=== PATIENT | male | born 1995 | race African-American/Black ===

== ENCOUNTER 2019-04-24 11:23 | Emergency (ER) | payer SELFPAY ==
[2016-05-22 04:07] VITALS: BP 142/76
[2019-04-24] MEDS ORDERED: metroNIDAZOLE 500 MG TABLET PO ONE (11:45)
== END 2019-04-24 11:50 | disposition home or self-care (01) ==
LOC: ED 11:23
DX: Z20.2 Contact with and (suspected) exposure to infections with a predominantly sexual mode of transmission (principal)
CPT/HCPCS: 87210; 87661; 99282; 99283